=== PATIENT | female | born 1960 | race Caucasian/White ===

== ENCOUNTER 2020-07-20 12:39 | Emergency (ER) | payer OTHER ==
[~2020-07-20] VITALS: Ht 154.9 cm; Wt 57.6 kg
--- NOTE | 2020-07-20 13:05 | NUR ---
PT IS IN ROOM #2B. DR GARDNER EVALUATED THE PT.
[2020-07-20 13:26] VITALS: BP 148/79
--- NOTE | 2020-07-20 13:26 | NUR ---
PT WAS D/C'd TO HOME. D/C INSTRUCTIONS GIVEN TO THE PT BY DR GARDNER.
== END 2020-07-20 13:27 | disposition home or self-care (01) ==
LOC: ER 12:39
DX: R05 Cough (principal); J02.9 Acute pharyngitis, unspecified; Z20.828 Contact with and (suspected) exposure to other viral communicable diseases
CPT/HCPCS: 71045; 99284; U0003; A4663